=== PATIENT | female | born 1950 | race Caucasian/White ===

== ENCOUNTER → 2020-06-22 | Outpatient (CLI) | payer MEDICARE, OTHER ==
[~2020-06-22] MED LIST: ALPR1 PO; AMLO10; AMLO5 PO; Bupropion HCl150 M2 PO; CELE200 PO; CIMETIDINE300 MG/5 M PO; CYCL10 PO; DOCU100 PO; DOCUSATE-SENNA PO; DOXY100 PO; ESCI20 PO; ESTR.1TPBW; ESTR.1TPBW TOP; ESZO3 PO; FENT75TP TOP; FERSU300 PO; FOLI1 PO; GABA300 PO; HYDACE5 PO; HYDMOR4 PO; LISI5 PO; METO50ER; MORPHINE SULFAT15 M1 PO; Methocarbamol500 MG PO; NITR100CA PO; OXYB5 PO; OXYC30ER PO; OXYCODONE; OXYTROL; PERCOCET 10/325 PO; PHENTERMINE; PRAV20 PO; RISP1 PO; RXHYDMOR2 PO; SERT100; SERT100 PO; TRAZ50; TRAZ50 PO; VISBIOME PROBIOTIC; ZOLP10 PO; ZOLP12.5
== END | disposition home or self-care (01) ==
LOC: LAB EV 14:01 → LAB SHORT 14:01
DX: N39.0 Urinary tract infection, site not specified (principal)
CPT/HCPCS: 87077; 87086; 87186

== ENCOUNTER 2020-06-25 00:17 | Inpatient (IN) | payer MEDICARE, OTHER ==
[~2020-06-25] VITALS: Ht 165.1 cm; Wt 111.1 kg
[~2020-06-25 00:17] MED LIST changes: -Bupropion HCl150 M2 PO; -CIMETIDINE300 MG/5 M PO; -DOCUSATE-SENNA PO; -DOXY100 PO; -ESCI20 PO; -FERSU300 PO; -MORPHINE SULFAT15 M1 PO; -Methocarbamol500 MG PO; -NITR100CA PO; -TRAZ50 PO; -VISBIOME PROBIOTIC
[2020-06-25 01:00] LABS: BASOPHILS ABSOLUTE AUTO 0.02 K/mm3 (0.00-0.23); BASOPHILS PERCENT AUTO 0 % (0-2); EOSINOPHILS ABSOLUTE AUTO 0.01 K/mm3 (0.00-0.68); EOSINOPHILS PERCENT AUTO 0 % (0-6); Hematocrit 38.3 % (33.0-51.0); IMMATURE GRAN ABSOLUTE AUTO 0.06 K/mm3 (0.00-0.10); IMMATURE GRAN PERCENT AUTO 1 % (0-1); LYMPHOCYTES ABSOLUTE AUTO 0.88 K/mm3 (0.84-5.20); LYMPHOCYTES PERCENT AUTO 10 % (21-46); MONOCYTES ABSOLUTE AUTO 1.05 K/mm3 (0.16-1.47); MONOCYTES PERCENT AUTO 12 % (4-13); Mean Corpuscular HGB 28.8 pg (26.0-34.0); Mean Corpuscular HGB Conc 31.3 g/dL (31.5-36.5); Mean Corpuscular Volume 92 fL (80-100); Mean Platelet Volume 10.2 fL (9.1-12.4); NEUTROPHILS ABSOLUTE AUTO 7.07 K/mm3 (1.96-9.15); NEUTROPHILS PERCENT AUTO 78 % (41-73); Platelet Count 192 K/mm3 (150-400); RDW Coefficient Variation 13.2 % (11.7-14.2); RDW Standard Deviation 44.3 fL (35.1-46.3); Red Blood Cell Count 4.17 M/mm3 (3.80-5.20); White Blood Cell Count 9.09 K/mm3 (4.00-11.30)
[2020-06-25 01:10] LABS: Source, Urine Clean Catch
[2020-06-25 01:12] LABS: Appearance, Urine Hazy (Clear); Bilirubin, Urine Neg (Neg); Blood, Urine 3+ (Neg); Color, Urine Yellow (P-Yellow); Glucose Qualitative, Urine Neg (Neg); Ketones, Urine Neg (Neg); Leukocyte Esterase, Urine 3+ (Neg); Nitrite, Urine Neg (Neg); Protein, Urine 2+ (Neg); Urobilinogen, Urine NORM (Normal)
[2020-06-25 01:13] LABS: Bun/Creatinine Ratio 17.5 (12.0-20.0); Calcium, Blood 8.5 mg/dL (8.5-10.1); Creatinine, Blood 2.11 mg/dL (0.40-1.00); Potassium, Blood 4.4 mmol/L (3.5-5.5)
[2020-06-25 01:19] LABS: Bacteria Many /hpf; Red Blood Cells, Urine 0-2 /hpf (0-2); Squamous Epithelial Cells Few /hpf (Few); White Blood Cells, Urine TNTC /hpf (0-5)
[2020-06-25] MEDS ORDERED: Bupropion HCl150 M2 PO (02:12)
[2020-06-25] MEDS ORDERED: FERSU300 PO (02:13)
[2020-06-25] MEDS ORDERED: NITR100CA PO (02:15)
[2020-06-25] MEDS ORDERED: Methocarbamol500 MG PO (02:16)
[2020-06-25] MEDS ORDERED: MORPHINE SULFAT15 M1 PO (02:17)
[2020-06-25] MEDS ORDERED: CIMETIDINE300 MG/5 M PO (02:19)
[2020-06-25] MEDS ORDERED: ESCI20 PO (02:20)
[2020-06-25] MEDS ORDERED: TRAZ50 PO (02:20)
--- NOTE | 2020-06-25 03:00 | NUR ---
RECEIVED REPORT FROM CHUY ED RN. PT TRANSPORTED TO MEDICAL FLOOR VIA GURNEY, ASSISTED TO USE BSC AND 2-PERSON STAND-PIVOT TRANSFER WITH FWW TO BED. PT TOLERATED WELL, UNSTEADY ON FEET. VS OBTAINED, FEBRILE. ORIENTED TO UNIT AND USE OF CALL LIGHT, SETTLED INTO ROOM. PT ASKING FOR SOMETHING TO EAT, REASSURED PT THAT THIS RN WOULD SPEAK TO DOCTOR AND SEE WHAT THEY COULD DO. CALL LIGHT, POSSESSIONS IN REACH, WILL SPEAK TO PROVIDER TO OBTAIN ORDERS.
[2020-06-25 06:18] LABS: BASOPHILS ABSOLUTE AUTO 0.03 K/mm3 (0.00-0.23); BASOPHILS PERCENT AUTO 0 % (0-2); EOSINOPHILS ABSOLUTE AUTO 0.02 K/mm3 (0.00-0.68); EOSINOPHILS PERCENT AUTO 0 % (0-6); Hematocrit 34.8 % (33.0-51.0); Hemoglobin 10.9 g/dL (11.5-16.0); IMMATURE GRAN ABSOLUTE AUTO 0.06 K/mm3 (0.00-0.10); IMMATURE GRAN PERCENT AUTO 1 % (0-1); LYMPHOCYTES ABSOLUTE AUTO 1.25 K/mm3 (0.84-5.20); LYMPHOCYTES PERCENT AUTO 14 % (21-46); MONOCYTES ABSOLUTE AUTO 1.12 K/mm3 (0.16-1.47); MONOCYTES PERCENT AUTO 12 % (4-13); Mean Corpuscular HGB 28.8 pg (26.0-34.0); Mean Corpuscular HGB Conc 31.3 g/dL (31.5-36.5); Mean Corpuscular Volume 92 fL (80-100); Mean Platelet Volume 10.5 fL (9.1-12.4); NEUTROPHILS ABSOLUTE AUTO 6.78 K/mm3 (1.96-9.15); NEUTROPHILS PERCENT AUTO 73 % (41-73); Platelet Count 180 K/mm3 (150-400); RDW Coefficient Variation 13.2 % (11.7-14.2); RDW Standard Deviation 44.1 fL (35.1-46.3); Red Blood Cell Count 3.78 M/mm3 (3.80-5.20); White Blood Cell Count 9.26 K/mm3 (4.00-11.30)
[2020-06-25 06:31] LABS: Albumin, Blood 2.3 g/dL (3.4-5.0); Albumin/Globulin Ratio 0.6 (0.8-1.8); Bilirubin, Total 0.4 mg/dL (0.1-1.0); Bun/Creatinine Ratio 18.3 (12.0-20.0); Calcium, Blood 8.2 mg/dL (8.5-10.1); Creatinine, Blood 1.91 mg/dL (0.40-1.00); Potassium, Blood 4.2 mmol/L (3.5-5.5); Total Protein, Blood 6.3 g/dL (6.4-8.2)
--- NOTE | 2020-06-25 08:00 | NUR ---
SHIFT SUMMARY PT ASLEEP AT THIS TIME, NO ACUTE CHANGES IN CONDITION SINCE ARRIVAL TO MEDICAL FLOOR. VS REVIEWED, STABLE. RECEIVED IV ABX, IVF ONGOING. DENIES NEEDS. CALL LIGHT, POSSESSIONS IN REACH, BED IN LOW POSITION WITH ALARMS ON. REPORT GIVEN TO GIFTY BAEZA.
--- NOTE | 2020-06-25 17:28 | NUR ---
PT UP WITH ONE ASSIST TO BSC, SHE DOES COMPLAIN OF BEING WEAK BUT IS BETTER. MEDICATED WITH IV FENTANYL FOR CHRONIC BACK PAIN, TOLERATED WELL, GOOD EFFECT. DR TRISTAN DECLINED HOME MED OF PO MORPHINE D/T KIDNEY FUNCTION. SON INDICATES THAT MENTAL STATUS IS CLEARER THAN WHEN SHE CAME IN LAST NIGHT. NO ACUTE CHANGES NOTED THIS SHIFT. WILL CONTINUE TO MONITOR AND REPORT TO ONCOMING RN
--- NOTE | 2020-06-26 04:39 | NUR ---
SHIFT SUMMARY- PT. A&O LAST NIGHT, ABLE TO MAKE NEEDS KNOWN. ASSISTED TO BATHROOM W/WALKER. HAD TEMP OF 102.3 LAST NIGHT, MEDICATED WITH TYLENOL PER EMAR WITH GOOD RESULT. ALSO MEDICATED FOR C/O BACK PAIN. PT. STATED GOOD RELIEF. DENIED ANY OTHER NEEDS DURING THE NIGHT. RESTING QUIETLY IN BED, NO APPARENT DISTRESS NOTED. CALL LIGHT WITHIN REACH AND SIDE RAILS UPX2. WILL CONT TO MONITOR.
[2020-06-26 06:10] LABS: BASOPHILS ABSOLUTE AUTO 0.03 K/mm3 (0.00-0.23); BASOPHILS PERCENT AUTO 1 % (0-2); EOSINOPHILS ABSOLUTE AUTO 0.02 K/mm3 (0.00-0.68); EOSINOPHILS PERCENT AUTO 0 % (0-6); Hematocrit 36.5 % (33.0-51.0); Hemoglobin 11.5 g/dL (11.5-16.0); IMMATURE GRAN ABSOLUTE AUTO 0.02 K/mm3 (0.00-0.10); IMMATURE GRAN PERCENT AUTO 0 % (0-1); LYMPHOCYTES ABSOLUTE AUTO 0.73 K/mm3 (0.84-5.20); LYMPHOCYTES PERCENT AUTO 13 % (21-46); MONOCYTES ABSOLUTE AUTO 0.46 K/mm3 (0.16-1.47); MONOCYTES PERCENT AUTO 8 % (4-13); Mean Corpuscular HGB 28.6 pg (26.0-34.0); Mean Corpuscular HGB Conc 31.5 g/dL (31.5-36.5); Mean Corpuscular Volume 91 fL (80-100); Mean Platelet Volume 10.3 fL (9.1-12.4); NEUTROPHILS ABSOLUTE AUTO 4.31 K/mm3 (1.96-9.15); NEUTROPHILS PERCENT AUTO 77 % (41-73); Platelet Count 213 K/mm3 (150-400); RDW Coefficient Variation 13.2 % (11.7-14.2); RDW Standard Deviation 44.1 fL (35.1-46.3); Red Blood Cell Count 4.02 M/mm3 (3.80-5.20); White Blood Cell Count 5.57 K/mm3 (4.00-11.30)
[2020-06-26 06:30] LABS: Albumin, Blood 2.3 g/dL (3.4-5.0); Anion Gap 6 mmol/L (6-16); Blood Urea Nitrogen 25 mg/dL (8-24); Bun/Creatinine Ratio 16.6 (12.0-20.0); CO2, Blood 27 mmol/L (21-32); Calcium, Blood 9.2 mg/dL (8.5-10.1); Chloride, Blood 106 mmol/L (98-108); Creatinine, Blood 1.51 mg/dL (0.40-1.00); Glomerular Filtration Rate 36 (60-); Glucose, Blood 95 mg/dL (70-99); Phosphorus, Blood 2.7 mg/dL (2.5-4.9); Potassium, Blood 4.4 mmol/L (3.5-5.5); Sodium, Blood 139 mmol/L (136-145)
--- NOTE | 2020-06-26 17:46 | NUR ---
PATIENT IS ALERT AND ORIENTED. PATIENT STATES SHE HAS CHRONIC CONSTIPATION AND USES FLEET ENEMAS AT HOME. DR. MICHAEL NOTIFIED OF PATIENT'S STATEMENT OF NOT HAVING A BM IN 5-7 DAYS. BOWEL CARE ORDERED. MIRALAX AND FLEET ENEMA GIVEN. PATIENT DID HAVE A BM THIS AFTERNOON. PATIENT WALKED THE [place] THIS AFTERNOON WITH CUSTOMER EXPERIENCE PROFESSIONAL AND RN WITH FWW AND GAITBELT. ULTRAM AND FENTANYL FOR PAIN. ORAL TEMPERATURE THIS MORNING OF 101.1 TREATED WITH TYLENOL. WILL CONTINUE TO MONITOR
--- NOTE | 2020-06-27 04:01 | NUR ---
SHIFT SUMMARY ASSUMED CARE OF PT AT 1900. PT IS A/OX4. HEART SOUNDS REGULAR, TELE SHOWS SINUS @ 71. LUNG SOUNDS CLEAR. PT C/O PAIN T/O THE NIGHT. PT STATES THAT SHE THINKS THAT SHE IS GOING THROUGH WITHDRAWLS FROM MORPHINE BEUCASE SHE CANT SLEEP AND HER LEGS WONT STOP FIDGETING. HOSPITALIST CALLED AND FLEXERIL WAS ORDERED PER PT HOME MED RX BUT WITH NO RELEIF, PAIN MEDICATION GIVEN Q4 WITHOUT MUCH RELIEF. PT HAD A FEVER OF 103 ONCE DURING THE NIGHT, TYLONAL GIVEN, FEVER WENT DOWN TO 100 AND THEN 98.7. PT WAS INDEPENDENT TO THE BATHROOM. CALL LIGHT IN REACH, BED IN LOWEST POSTION, WILL CONTINUE TO MONITOR.
[2020-06-27 06:21] LABS: Bun/Creatinine Ratio 16.2 (12.0-20.0); Calcium, Blood 8.9 mg/dL (8.5-10.1); Creatinine, Blood 1.3 mg/dL (0.40-1.00); Potassium, Blood 3.6 mmol/L (3.5-5.5); Thyroid Stimulating Hormone 1.21 uIU/mL (0.360-4.800)
--- NOTE | 2020-06-27 17:46 | NUR ---
SHIFT SUMMARY PT IS ALERT AND ORIENTEDx4. THIS MORNING PT REPORTED DIFFICULTY SLEEPING AND HER PAIN NOT ADEQUATLY CONTROLLED DUE TO NOT BEING ON HOME PAIN MEDICATIONS. DISCUESS WITH DR AND PT WAS RESTARTED ON HOME MEDS WITH BETTER PAIN CONTROL THIS AFTERNOON. POWERGLIDE PLACED TODAY FOR BETTER IV ACCESS. TELEMETERY HAS SHOWN PT TO BE IN SINUS RHYTHM. VITALS HAVE BEEN STABLE.
--- NOTE | 2020-06-28 04:16 | NUR ---
SHIFT SUMMARY ASSUMED CARE OF PT AT 1900. PT IS A/OX4. LUNG SOUNDS CLEAR, HEART SOUNDS REGULAR. PT STATES SHE IS FEELING MUCH BETTER AND IS WONDERING WHEN SHE IS GOING HOME. PT IS HAPPY WITH NEW PAIN REGIME, MEDICATED FOR PAIN ONCE. PT IS 1P TO BSC. NO ACUTE EVENTS DURING THE NIGHT. PT DIDNT SLEEP VERY WELL BECAUSE SHE SAID SHE SLEPT DURING THE DAY. CALL LIGHT IN REACH, BED IN LOWEST POSTION, WILL CONTINUE TO MONITOR.
--- NOTE | 2020-06-28 18:52 | NUR ---
SHIFT SUMMARY. A&OX4, INDEPENDENT TO BATHROOM. PT DENIES SOB, N/V. PT REPORTS CHRONIC BACK PAIN THAT IS MANAGED WITH CURRENT ORDERS. PT DENIES BURNING, URGENCY WITH URINATION. PT AMBULATED IN [place] WITH FWW AND WITH SON TWICE THIS SHIFT AND TOLERATED WELL. NO NEW CHANGES OR CONCERNS.
--- NOTE | 2020-06-29 07:57 | NUR ---
06/29/20 0615 HEART MONITOR AND VITALS STABLE. SLEPT ON AND OFF. NO COMPLAINTS WITH VOIDINGS. K-PAD TO BACK FOR CHRONIC PAIN. MEDICATED TWICE FOR BACK PAIN WELL.
[2020-06-29 09:04] LABS: Hematocrit 38.1 % (33.0-51.0); Hemoglobin 12.2 g/dL (11.5-16.0); Mean Corpuscular HGB 28.7 pg (26.0-34.0); Mean Corpuscular Volume 90 fL (80-100); Mean Platelet Volume 9.7 fL (9.1-12.4); Platelet Count 256 K/mm3 (150-400); RDW Coefficient Variation 13.5 % (11.7-14.2); Red Blood Cell Count 4.25 M/mm3 (3.80-5.20); White Blood Cell Count 5.64 K/mm3 (4.00-11.30)
[2020-06-29 09:22] LABS: Bun/Creatinine Ratio 11.1 (12.0-20.0); Calcium, Blood 8.5 mg/dL (8.5-10.1); Creatinine, Blood 0.99 mg/dL (0.40-1.00); Potassium, Blood 4.2 mmol/L (3.5-5.5)
[2020-06-29] MEDS ORDERED: DOCUSATE-SENNA PO (11:09)
[2020-06-29] MEDS ORDERED: VISBIOME PROBIOTIC (11:12)
[2020-06-29] MEDS ORDERED: DOXY100 PO (11:16)
--- NOTE | 2020-06-29 12:04 | NUR ---
1200 PT DISCHARGED HOME VIA PERSONAL VEHICLE ACCOMPANIED AND DRIVEN BY SON. ESCORTED TO ENTRANCE VIA W/C BY VOLUNTEER. IV REMOVED. D/C INSTRUCTIONS REVIEWED WITH PT AND COPY PROVIDED. [facility] PACKET COMPLETED, GIVEN TO CASE MANAGEMENT. NO NEW CHANGES OR CONCERNS.
== END 2020-06-29 12:00 | disposition home or self-care (01) | DRG 871 ==
LOC: ER 00:17 → MEDS 01:48
PROVIDERS: Family Medicine; Internal Medicine; Student in an Organized Health Care Education/Training Program; ADMIT Internal Medicine
DX: A41.51 Sepsis due to Escherichia coli [E. coli] (principal); J18.9 Pneumonia, unspecified organism; G92 Toxic encephalopathy; N17.9 Acute kidney failure, unspecified; I12.0 Hypertensive chronic kidney disease with stage 5 chronic kidney disease or end stage renal disease; E86.0 Dehydration; F32.9 Major depressive disorder, single episode, unspecified; E78.5 Hyperlipidemia, unspecified; M79.2 Neuralgia and neuritis, unspecified; R73.9 Hyperglycemia, unspecified; N18.31 Chronic kidney disease, stage 3a; K59.09 Other constipation; M79.7 Fibromyalgia
CPT/HCPCS: 36415; 76770; 80048; 80053; 80069; 81001; 83036; 83605; 84443; 85025; 85027; 87077; 87086; 87186; 96365; 99285-25; A9270; C1751; J0696; J1650; J2185; J2405; J3010; J7030

== ENCOUNTER → 2020-09-10 | Outpatient (CLI) | payer MEDICARE, OTHER ==
[~2020-09-10] MED LIST changes: +Bupropion HCl150 M2 PO; +CIMETIDINE300 MG/5 M PO; +DOCUSATE-SENNA PO; +DOXY100 PO; +ESCI20 PO; +FERSU300 PO; +MORPHINE SULFAT15 M1 PO; +Methocarbamol500 MG PO; +NITR100CA PO; +TRAZ50 PO; +VISBIOME PROBIOTIC
== END | disposition home or self-care (01) ==
LOC: LAB 18:28 → LAB SHORT 18:28
DX: N39.0 Urinary tract infection, site not specified (principal)
CPT/HCPCS: 87077; 87086; 87186

== ENCOUNTER → 2020-10-14 | Outpatient (CLI) | payer MEDICARE, OTHER | END | disposition home or self-care (01) | LOC: PLD 18:25 → LAB SHORT 18:25 | DX: R30.0 Dysuria (principal) | CPT/HCPCS: 87086 ==

== ENCOUNTER → 2021-01-03 | Outpatient (CLI) | payer MEDICARE, OTHER ==
[2021-01-03 21:19] LABS: Protein, Urine Quantitative 21.9 mg/dL (0.0-11.9)
[2021-01-03 21:25] LABS: Microalbumin, Urine Quant. <5.000 mg/L (0.000-20.000)
== END | disposition home or self-care (01) ==
LOC: LAB SHORT 13:00 → LAB 13:00
PROVIDERS: Internal Medicine Nephrology
DX: N18.30 Chronic kidney disease, stage 3 unspecified (principal); D63.1 Anemia in chronic kidney disease; N25.81 Secondary hyperparathyroidism of renal origin; E55.9 Vitamin D deficiency, unspecified; E78.00 Pure hypercholesterolemia, unspecified; D50.9 Iron deficiency anemia, unspecified; D51.8 Other vitamin B12 deficiency anemias; D52.8 Other folate deficiency anemias; R76.9 Abnormal immunological finding in serum, unspecified; R94.5 Abnormal results of liver function studies; R94.6 Abnormal results of thyroid function studies
CPT/HCPCS: 81050; 82043; 82570; 84156

== ENCOUNTER → 2021-02-21 | Outpatient (CLI) | payer MEDICARE, OTHER | END | disposition home or self-care (01) | LOC: LAB 13:29 → LAB SHORT 13:29 | DX: N39.0 Urinary tract infection, site not specified (principal) | CPT/HCPCS: 87077; 87086; 87186 ==

== ENCOUNTER → 2021-03-04 | Outpatient (CLI) | payer MEDICARE, OTHER | END | disposition home or self-care (01) | LOC: LAB 11:20 → LAB SHORT 11:20 | DX: N39.0 Urinary tract infection, site not specified (principal) | CPT/HCPCS: 87077; 87086; 87186 ==

== ENCOUNTER → 2021-05-06 | Outpatient (CLI) | payer MEDICARE, OTHER ==
[2021-05-06 17:39] LABS: U Amphetamine Screen Not Detected; U Barbituate Screen Not Detected; U Benzodiazapine Screen Not Detected; U Buprenorphine Screen Not Detected; U Cannabinoids Screen Not Detected; U Cocaine Screen Not Detected; U Methadone Screen Not Detected; U Methamphetamine Screen Not Detected; U Opiates Screen DETECTED; U Oxycodone Screen Not Detected; U Phencyclidine Screen Not Detected; U Propoxyphene Screen Not Detected
== END ==
LOC: LAB SHORT 16:14 → LAB 16:14
PROVIDERS: Physician Assistant
DX: Z51.81 Encounter for therapeutic drug level monitoring (principal); Z79.891 Long term (current) use of opiate analgesic

== ENCOUNTER → 2021-05-30 | Outpatient (CLI) | payer MEDICARE, OTHER | LOC: LAB SHORT 11:15 | DX: R30.9 Painful micturition, unspecified (principal) | CPT/HCPCS: 87086 ==

== ENCOUNTER → 2021-08-07 | Outpatient (CLI) | payer MEDICARE, OTHER | END | disposition home or self-care (01) | LOC: LAB SHORT 12:37 | DX: N39.0 Urinary tract infection, site not specified (principal) | CPT/HCPCS: 87077; 87086; 87186 ==

== ENCOUNTER → 2021-09-04 | Outpatient (CLI) | payer MEDICARE, OTHER | END | disposition home or self-care (01) | LOC: LAB SHORT 12:52 | DX: R30.9 Painful micturition, unspecified (principal) | CPT/HCPCS: 87086 ==

== ENCOUNTER → 2021-11-18 | Outpatient (CLI) | payer MEDICARE, OTHER | LOC: LAB SHORT 15:07 | DX: R30.9 Painful micturition, unspecified (principal) | CPT/HCPCS: 87077; 87086; 87186 ==

== ENCOUNTER → 2021-12-02 | Outpatient (CLI) | payer MEDICARE, OTHER ==
[2021-12-02 15:34] LABS: BASOPHILS ABSOLUTE AUTO 0.03 K/mm3 (0.00-0.23); BASOPHILS PERCENT AUTO 1 % (0-2); EOSINOPHILS ABSOLUTE AUTO 0.06 K/mm3 (0.00-0.68); EOSINOPHILS PERCENT AUTO 1 % (0-6); Hematocrit 41.7 % (33.0-51.0); Hemoglobin 13.4 g/dL (11.5-16.0); IMMATURE GRAN ABSOLUTE AUTO 0.01 K/mm3 (0.00-0.10); IMMATURE GRAN PERCENT AUTO 0 % (0-1); LYMPHOCYTES ABSOLUTE AUTO 1.26 K/mm3 (0.84-5.20); LYMPHOCYTES PERCENT AUTO 23 % (21-46); MONOCYTES ABSOLUTE AUTO 0.47 K/mm3 (0.16-1.47); MONOCYTES PERCENT AUTO 8 % (4-13); Mean Corpuscular HGB 29.8 pg (26.0-34.0); Mean Corpuscular HGB Conc 32.1 g/dL (31.5-36.5); Mean Corpuscular Volume 93 fL (80-100); NEUTROPHILS ABSOLUTE AUTO 3.75 K/mm3 (1.96-9.15); NEUTROPHILS PERCENT AUTO 67 % (41-73); Platelet Count 189 K/mm3 (150-400); RDW Standard Deviation 43.9 fL (35.1-46.3); White Blood Cell Count 5.58 K/mm3 (4.00-11.30)
[2021-12-02 15:46] LABS: Albumin, Blood 3.2 g/dL (3.4-5.0); Albumin/Globulin Ratio 0.8 (0.8-1.8); Bilirubin, Total 0.4 mg/dL (0.1-1.0); Bun/Creatinine Ratio 15.6 (12.0-20.0); Calcium, Blood 8.6 mg/dL (8.5-10.1); Creatinine, Blood 1.09 mg/dL (0.40-1.00); Potassium, Blood 4.5 mmol/L (3.5-5.5); Total Protein, Blood 7.2 g/dL (6.4-8.2)
== END | disposition home or self-care (01) ==
LOC: LAB SHORT 15:29
PROVIDERS: Chiropractor
DX: R10.9 Unspecified abdominal pain (principal)
CPT/HCPCS: 80053; 85025

== ENCOUNTER → 2022-01-10 | Outpatient (CLI) | payer MEDICARE, OTHER | END | disposition home or self-care (01) | LOC: LAB SHORT 09:00 | DX: R30.0 Dysuria (principal) | CPT/HCPCS: 87077; 87086; 87186 ==

== ENCOUNTER → 2022-01-24 | Outpatient (CLI) | payer MEDICARE, OTHER | END | disposition home or self-care (01) | LOC: LAB SHORT 09:00 | DX: R30.9 Painful micturition, unspecified (principal) | CPT/HCPCS: 87077; 87086; 87186 ==

== ENCOUNTER → 2022-02-22 | Outpatient (CLI) | payer MEDICARE, OTHER ==
[~2022-02-22] MED LIST changes: +TAMS.4ER PO
== END | disposition home or self-care (01) ==
LOC: LAB 10:46 → LAB SHORT 10:46
DX: N39.0 Urinary tract infection, site not specified (principal)
CPT/HCPCS: 87077; 87086; 87147; 87186

== ENCOUNTER 2022-02-24 23:09 | Emergency (ER) | payer MEDICARE, OTHER ==
[~2022-02-24] VITALS: Ht 167.6 cm; Wt 108.9 kg
[~2022-02-24 23:09] MED LIST changes: -TAMS.4ER PO
[2022-02-24 23:45] LABS: BASOPHILS ABSOLUTE AUTO 0.06 K/mm3 (0.00-0.23); BASOPHILS PERCENT AUTO 1 % (0-2); EOSINOPHILS ABSOLUTE AUTO 0.14 K/mm3 (0.00-0.68); EOSINOPHILS PERCENT AUTO 3 % (0-6); Hematocrit 39.3 % (33.0-51.0); Hemoglobin 13.2 g/dL (11.5-16.0); IMMATURE GRAN ABSOLUTE AUTO 0.01 K/mm3 (0.00-0.10); IMMATURE GRAN PERCENT AUTO 0 % (0-1); LYMPHOCYTES ABSOLUTE AUTO 2.37 K/mm3 (0.84-5.20); LYMPHOCYTES PERCENT AUTO 44 % (21-46); MONOCYTES ABSOLUTE AUTO 0.43 K/mm3 (0.16-1.47); MONOCYTES PERCENT AUTO 8 % (4-13); Mean Corpuscular HGB 29.7 pg (26.0-34.0); Mean Corpuscular HGB Conc 33.6 g/dL (31.5-36.5); Mean Corpuscular Volume 88 fL (80-100); Mean Platelet Volume 9.2 fL (9.1-12.4); NEUTROPHILS ABSOLUTE AUTO 2.34 K/mm3 (1.96-9.15); NEUTROPHILS PERCENT AUTO 44 % (41-73); Platelet Count 302 K/mm3 (150-400); RDW Coefficient Variation 13.5 % (11.7-14.2); RDW Standard Deviation 44.2 fL (35.1-46.3); Red Blood Cell Count 4.45 M/mm3 (3.80-5.20); White Blood Cell Count 5.35 K/mm3 (4.00-11.30)
[2022-02-25 00:03] LABS: Albumin, Blood 3.4 g/dL (3.4-5.0); Albumin/Globulin Ratio 0.8 (0.8-1.8); Bilirubin, Total 0.3 mg/dL (0.1-1.0); Bun/Creatinine Ratio 13.9 (12.0-20.0); Calcium, Blood 9.4 mg/dL (8.5-10.1); Creatinine, Blood 1.08 mg/dL (0.40-1.00); Globulin, Blood 4.3 g/dL (2.2-4.0); Potassium, Blood 4.2 mmol/L (3.5-5.5); Total Protein, Blood 7.7 g/dL (6.4-8.2)
[2022-02-25 00:12] LABS: Source, Urine Straight Cath
[2022-02-25 00:19] LABS: Bilirubin, Urine Neg (Neg); Blood, Urine Neg (Neg); Glucose Qualitative, Urine Neg (Neg); Ketones, Urine Neg (Neg); Leukocyte Esterase, Urine 1+ (Neg); Nitrite, Urine Neg (Neg); Protein, Urine Neg (Neg); Urobilinogen, Urine NORM (Normal)
[2022-02-25 00:20] LABS: Appearance, Urine Clear (Clear); Color, Urine Yellow (P-Yellow)
[2022-02-25 00:29] LABS: Bacteria Few /hpf; Red Blood Cells, Urine Not Seen /hpf (0-2); Squamous Epithelial Cells Rare /hpf (Few); Transitional Epithelial Cells Few /hpf (0-Rare)
[2022-02-25] MEDS ORDERED: TAMS.4ER PO (03:01)
== END 2022-02-25 03:30 | disposition home or self-care (01) ==
LOC: ER 23:09
PROVIDERS: Student in an Organized Health Care Education/Training Program
DX: N13.2 Hydronephrosis with renal and ureteral calculous obstruction (principal); N23 Unspecified renal colic; I10 Essential (primary) hypertension; Z88.8 Allergy status to other drugs, medicaments and biological substances; Z79.899 Other long term (current) drug therapy
CPT/HCPCS: 36415; 74176; 80053; 81001; 83605; 85025; 87086; J1170; J1885

== ENCOUNTER → 2022-03-27 | Outpatient (CLI) | payer MEDICARE, OTHER ==
[~2022-03-27] MED LIST changes: +TAMS.4ER PO
== END ==
LOC: LAB SHORT 13:40 → LAB 13:40
DX: N39.0 Urinary tract infection, site not specified (principal)
CPT/HCPCS: 87077; 87086; 87186

== ENCOUNTER → 2022-05-02 | Outpatient (CLI) | payer MEDICARE, OTHER | LOC: LAB SHORT 07:30 | DX: R31.29 Other microscopic hematuria (principal) ==

== ENCOUNTER → 2022-08-18 | Outpatient (CLI) | payer MEDICARE, OTHER ==
[2022-08-18 14:38] LABS: Protein, Urine Quantitative 11.5 mg/dL (0.0-11.9); Sodium, Urine 45 mmol/L (20-110); Uric Acid, Urine 35.8 mg/dL (7.5-49.5); Urine Potassium 14 mmol/L (12.0-75.0)
[2022-08-18 14:42] LABS: Phosphorus, Urine 27.7 mg/dL (20.0-60.0)
[2022-08-18 14:48] LABS: Microalbumin, Urine Quant. <5.000 mg/L (0.000-20.000)
[2022-08-18 14:52] LABS: Calcium, Urine <5.0 mg/dL (< 17.5); Calcium, Urine Calculation Unable to Calculate mg/24hrs (42.0-353.0)
== END ==
LOC: LAB SHORT 11:00 → LAB FUT 08-16 15:10
PROVIDERS: Internal Medicine Nephrology
DX: N18.30 Chronic kidney disease, stage 3 unspecified (principal); D63.1 Anemia in chronic kidney disease; N25.81 Secondary hyperparathyroidism of renal origin; E55.9 Vitamin D deficiency, unspecified; R76.9 Abnormal immunological finding in serum, unspecified; R94.5 Abnormal results of liver function studies; R94.6 Abnormal results of thyroid function studies
CPT/HCPCS: 81050; 82043; 82340; 82570; 84105; 84133; 84156; 84300; 84560

== ENCOUNTER → 2022-08-28 | Outpatient (CLI) | payer MEDICARE, OTHER | LOC: LAB SHORT 12:44 | DX: N39.0 Urinary tract infection, site not specified (principal) | CPT/HCPCS: 87086 ==

== ENCOUNTER → 2022-10-24 | Outpatient (CLI) | payer MEDICARE, OTHER | LOC: LAB SHORT 12:00 | DX: N39.0 Urinary tract infection, site not specified (principal) | CPT/HCPCS: 87077; 87086; 87147; 87186 ==

== ENCOUNTER → 2022-11-16 | Outpatient (CLI) | payer MEDICARE, OTHER | END | disposition home or self-care (01) | LOC: LAB SHORT 09:30 → LAB 09:30 | DX: R30.9 Painful micturition, unspecified (principal) | CPT/HCPCS: 87077; 87086; 87147; 87186 ==

== ENCOUNTER → 2023-04-03 | Outpatient (CLI) | payer MEDICARE, OTHER | END | disposition home or self-care (01) | LOC: LAB SHORT 11:55 → LAB 11:55 | DX: R30.9 Painful micturition, unspecified (principal) | CPT/HCPCS: 87077; 87086; 87186 ==

== ENCOUNTER → 2023-05-02 | Outpatient (CLI) | payer MEDICARE, OTHER | END | disposition home or self-care (01) | LOC: LAB SHORT 14:49 → LAB 14:49 | DX: N39.0 Urinary tract infection, site not specified (principal) | CPT/HCPCS: 87086; 87147 ==

== ENCOUNTER → 2024-03-04 | Outpatient (CLI) | payer MEDICARE, OTHER | LOC: LAB 11:00 → LAB SHORT 11:00 | DX: N39.0 Urinary tract infection, site not specified (principal) | CPT/HCPCS: 87077; 87086; 87186 ==

== ENCOUNTER 2024-08-03 09:44 | Emergency (ER) | payer MEDICARE, OTHER ==
[~2024-08-03] VITALS: Ht 160 cm; Wt 115.7 kg
[2024-08-03 09:58] VITALS: BP 155/106
[2024-08-03 10:55] LABS: Influenza A, PCR NEGATIVE (NEGATIVE); Influenza B, PCR NEGATIVE (NEGATIVE); Resp Syncytial Virus, PCR NEGATIVE (NEGATIVE)
[2024-08-03 11:01] LABS: SARS-Cov-2 (COVID-19) PCR, MMC POSITIVE (NEGATIVE)
== END 2024-08-03 11:39 | disposition home or self-care (01) ==
LOC: ER 09:44
PROVIDERS: Student in an Organized Health Care Education/Training Program
DX: U07.1 COVID-19 (principal); I10 Essential (primary) hypertension; Z88.5 Allergy status to narcotic agent; Z88.8 Allergy status to other drugs, medicaments and biological substances; Z79.899 Other long term (current) drug therapy; Z59.89 Other problems related to housing and economic circumstances
CPT/HCPCS: 0241U; 71046; 99283-25

== ENCOUNTER → 2024-11-20 | Outpatient (CLI) | payer MEDICARE, OTHER | LOC: LAB SHORT 18:32 → LAB 18:32 | DX: N39.0 Urinary tract infection, site not specified (principal); R31.9 Hematuria, unspecified | CPT/HCPCS: 87077; 87086; 87186 ==

== ENCOUNTER 2024-12-23 13:50 | Emergency (ER) | payer MEDICARE, OTHER ==
[~2024-12-23] VITALS: Ht 162.6 cm; Wt 111.1 kg
[2024-12-23 14:46] LABS: BASOPHILS ABSOLUTE AUTO 0.05 K/mm3 (0.00-0.23); BASOPHILS PERCENT AUTO 1 % (0-2); EOSINOPHILS ABSOLUTE AUTO 0.14 K/mm3 (0.00-0.68); EOSINOPHILS PERCENT AUTO 3 % (0-6); Hematocrit 38.9 % (33.0-51.0); Hemoglobin 12.5 g/dL (11.5-16.0); IMMATURE GRAN ABSOLUTE AUTO 0.01 K/mm3 (0.00-0.10); IMMATURE GRAN PERCENT AUTO 0 % (0-1); LYMPHOCYTES ABSOLUTE AUTO 2.16 K/mm3 (0.84-5.20); LYMPHOCYTES PERCENT AUTO 38 % (21-46); MONOCYTES ABSOLUTE AUTO 0.48 K/mm3 (0.16-1.47); MONOCYTES PERCENT AUTO 9 % (4-13); Mean Corpuscular HGB 29.7 pg (26.0-34.0); Mean Corpuscular HGB Conc 32.1 g/dL (31.5-36.5); Mean Corpuscular Volume 92 fL (80-100); Mean Platelet Volume 9.5 fL (9.1-12.4); NEUTROPHILS ABSOLUTE AUTO 2.84 K/mm3 (1.96-9.15); NEUTROPHILS PERCENT AUTO 50 % (41-73); Platelet Count 213 K/mm3 (150-400); RDW Coefficient Variation 13.6 % (11.7-14.2); RDW Standard Deviation 46.5 fL (35.1-46.3); Red Blood Cell Count 4.21 M/mm3 (3.80-5.20); White Blood Cell Count 5.68 K/mm3 (4.00-11.30)
[2024-12-23 15:12] LABS: Albumin, Blood 3.3 g/dL (3.4-5.0); Albumin/Globulin Ratio 0.9 (0.8-1.8); Bilirubin, Total 0.3 mg/dL (0.1-1.0); Bun/Creatinine Ratio 15.1 (12.0-20.0); Calcium, Blood 8.2 mg/dL (8.5-10.1); Creatinine, Blood 1.19 mg/dL (0.40-1.00); Globulin, Blood 3.8 g/dL (2.2-4.0); Potassium, Blood 3.6 mmol/L (3.5-5.5); Total Protein, Blood 7.1 g/dL (6.4-8.2)
[2024-12-23 16:01] LABS: Source, Urine Clean Catch
[2024-12-23 16:14] LABS: Appearance, Urine Cloudy (Clear); Bilirubin, Urine Neg (Neg); Blood, Urine 2+ (Neg); Glucose Qualitative, Urine Neg (Neg); Ketones, Urine Neg (Neg); Leukocyte Esterase, Urine 3+ (Neg); Nitrite, Urine Neg (Neg); Protein, Urine 2+ (Neg); Specific Gravity, Urine 1.015 (1.003-1.022); Urobilinogen, Urine NORM (Normal)
[2024-12-23 16:41] LABS: Color, Urine Pale Yellow (P-Yellow)
[2024-12-23 16:47] LABS: Bacteria Many /hpf; Red Blood Cells, Urine 0-2 /hpf (0-2); Squamous Epithelial Cells Few /hpf (Few); Transitional Epithelial Cells Few /hpf (0-Rare); White Blood Cells, Urine TNTC /hpf (0-5)
[2024-12-23 16:48] LABS: Granular Casts 0-2 /lpf (0)
[2024-12-23] MEDS ORDERED: CefTRIAXone Sodium 1,000 MG in NS 50 ML IV ONE (17:05)
[2024-12-23] MEDS ORDERED: Acetaminophen 325 MG TABLET PO ONE (17:05)
[2024-12-23] MEDS ORDERED: CEFD300 PO (17:10)
[2024-12-23 17:52] VITALS: BP 176/94
== END 2024-12-23 17:50 | disposition home or self-care (01) ==
LOC: ER 13:50
PROVIDERS: Student in an Organized Health Care Education/Training Program
DX: I10 Essential (primary) hypertension (principal); N39.0 Urinary tract infection, site not specified; R51.9 Headache, unspecified; Z88.8 Allergy status to other drugs, medicaments and biological substances; Z79.899 Other long term (current) drug therapy; Z96.659 Presence of unspecified artificial knee joint
CPT/HCPCS: 70450; 80053; 81001; 84484; 85025; 87077; 87086; 87186; 93005; 93010; 96374; 99284-25; A9270; J0696

== ENCOUNTER → 2025-04-10 | Outpatient (CLI) | payer MEDICARE, OTHER ==
[~2025-04-10] MED LIST changes: +CEFD300 PO
== END | disposition home or self-care (01) ==
LOC: LAB SHORT 08:49 → LAB 08:49
DX: N39.0 Urinary tract infection, site not specified (principal)
CPT/HCPCS: 87077; 87086; 87186